=== PATIENT | male | born 1980 | race African-American/Black ===

== ENCOUNTER 2023-12-22 08:46 | Outpatient (REF) | payer MEDICAID, SELFPAY | END 2023-12-22 08:47 | disposition home or self-care (01) | LOC: HO.HHCL 08:46 | PROVIDERS: Visit Provider Student in an Organized Health Care Education/Training Program | DX: Z13.89 Encounter for screening for other disorder (principal) ==

== ENCOUNTER 2025-01-30 08:32 | Outpatient (REF) | payer MEDICAID, SELFPAY ==
[2025-01-30 12:11] LABS: Alanine Aminotransferase 93 U/L (0-40); Albumin Level 4.8 g/dL (3.5-5.0); Alkaline Phosphatase 85 U/L (39-117); Anion Gap 11 (12-20); Aspartate Amino Transferase 61 U/L (5-37); Blood Urea Nitrogen 10 mg/dL (9-16); Calcium 9.4 mg/dL (8.4-10.2); Carbon Dioxide 26 mmol/L (22-29); Chloride 106 mmol/L (96-108); Estimated Glomerular Filt Rate > 60; Potassium 4.4 mmol/L (3.3-5.1); Sodium 139 mmol/L (135-145); Total Protein 8.1 g/dL (6.5-8.0)
== END 2025-01-30 08:33 | disposition home or self-care (01) ==
LOC: HO.HHCL 08:32
PROVIDERS: PCP Student in an Organized Health Care Education/Training Program; Visit Provider Student in an Organized Health Care Education/Training Program
DX: G47.33 Obstructive sleep apnea (adult) (pediatric) (principal); I10 Essential (primary) hypertension; M26.622 Arthralgia of left temporomandibular joint; N40.0 Benign prostatic hyperplasia without lower urinary tract symptoms; R74.01 Elevation of levels of liver transaminase levels
CPT/HCPCS: 36415; 80053